=== PATIENT | female | born 2000 | race Caucasian/White ===

== ENCOUNTER 2020-11-16 18:35 | Emergency (ER) | payer OTHER, SELFPAY ==
[2020-11-16 18:45] VITALS: BP 122/86; PULSE 78; RESP 18; TEMP 36; O2SAT 100
--- NOTE | 2020-11-16 19:07 | ED.GENADULT ---
HPI - General Adult General Chief complaint: Unspecified Stated complaint: I may be in DKA Time Seen by Provider: 11/16/20 19:03 Source: RN notes reviewed History of Present Illness HPI narrative: Patient presents to emergency department from home for elevated blood sugars. Patient is a type I diabetic with an insulin pump states that her blood sugars been reading high today up into the 450s she states that her pump has been working she has been dosing correctly she denies any recent illness she she did 1 episode of nausea earlier today but denies any vomiting denies any fevers or chills chest pain shortness of breath abdominal pain or any other symptoms Related Data Home Medications Medication Instructions Recorded Confirmed insulin lispro [Humalog U-100 11/16/20 Insulin] Allergies Allergy/AdvReac Type Severity Reaction Status Date / Time No Known Allergies Allergy Verified 11/16/20 18:48 Review of Systems Review of Systems: Narrative: Gen.: Denies fevers or chills ENT: Denies congestion Respiratory: Denies shortness of breath or cough CV: Denies chest pain or palpitations GI: Denies abdominal pain nausea or diarrhea. Reports nausea denies burning, urgency, frequency or hematuria Musculoskeletal: Denies back pain or muscle pain Neuro: Denies numbness, tingling, weakness or focal weakness Skin: Denies rash Endocrine: See HPI Except as documented, all other systems reviewed and negative FOR[facility] Past Medical History Medical History (Updated 11/16/20 @ 21:21 by Quan Hyde DO) Diabetes mellitus Social History Social History (Updated 11/16/20 @ 19:08 by Quan Hyde DO) Smoking status: Never smoker Exam Narrative: Exam Narrative: APPEARANCE: No acute distress, nontoxic, resting in bed EYES: EOMI HEENT: Normocephalic, atraumatic, OMM RESPIRATORY: No respiratory distress Clear to auscultation bilaterally with no rhonchi wheezing or rales. CARDIOVASCULAR: Regular rate and rhythm without murmurs rubs or gallops. ABDOMINAL: Soft, nontender, nondistended, no rebound or guarding MUSCULOSKELETAl: Moves all extremities. No clubbing, cyanosis or edema. NEURO: Awake and alert. Following commands, speech normal, no focal deficits SKIN:: Warm, dry. 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 Discussed need for follow-up with primary care, proper use of medication, and reasons to return to the emergency department. Patient understands and agrees to current treatment plan Vital Signs Vital signs: Vital Signs Temperature 96.8 F L 11/16/20 18:45 Pulse Rate 78 11/16/20 18:45 Respiratory Rate 18 11/16/20 18:45 Blood Pressure 122/86 11/16/20 18:45 Pulse Oximetry 100 11/16/20 18:45 Temperature 96.8 F L 11/16/20 18:45 Pulse Rate 78 11/16/20 18:45 Respiratory Rate 18 11/16/20 18:45 Blood Pressure 122/86 11/16/20 18:45 Pulse Oximetry 100 11/16/20 18:45 Medical Decision Making Vital Signs Vital Signs: Vital Signs Temperature 96.8 F L 11/16/20 18:45 Pulse Rate 78 11/16/20 18:45 Respiratory Rate 18 11/16/20 18:45 Blood Pressure 122/86 11/16/20 18:45 Pulse Oximetry 100 11/16/20 18:45 Temperature 96.8 F L 11/16/20 18:45 Pulse Rate 78 11/16/20 18:45 Respiratory Rate 18 11/16/20 18:45 Blood Pressure 122/86 11/16/20 18:45 Pulse Oximetry 100 11/16/20 18:45 Lab Data Result diagrams: 11/16/20 19:12 11/16/20 19:12 Labs: Lab Results 11/16/20 11/16/20 11/16/20 Range/Units 19:12 19:12 19:12 WBC 7.6 (4.5-10.0) K/mm3 RBC 4.51 (4.2-5.4) M/mm3 Hgb 14.1 (
[2020-11-16 19:26] LABS: Basophils Percent Auto 0.4 % (0.2-1.2); Eosinophils Absolute Auto 0.1 K/mm3 (0-0.3); Eosinophils Percent Auto 0.9 % (0-4.4); Hematocrit 40.2 % (37.0-47.0); Hemoglobin 14.1 g/dL (12.0-15.0); Immature Granulocyte Absolute 0.02 K/mm3 (0.00-0.031); Immature Granulocyte Percent A 0.3 % (0-0.5); Lymphocytes Absolute Auto 2.44 K/mm3 (0.9-3.2); Mean Corpuscular HGB Conc 35.1 g/dl (32-36); Mean Corpuscular Hemoglobin 31.3 pg (26-34); Mean Corpuscular Volume 89.1 fl (80-100); Mean Platelet Volume 9.4 fl (7.4-10.4); Monocytes Absolute Auto 0.5 K/mm3 (0.1-0.6); Neutrophils Absolute Auto 4.6 K/mm3 (1.3-6.7); Neutrophils Percent Auto 60.4 % (45.5-73.1); Platelet Count Result 262 k/mm3 (150-375); Red Blood Count 4.51 M/mm3 (4.2-5.4); Red Cell Distribution Width 11.2 % (11.5-14.5); White Blood Count 7.6 K/mm3 (4.5-10.0)
[2020-11-16] MEDS: SODIUM CHLORIDE 0.9% IV 1,000 ML 999 ML IV CONT ×2 (19:26→20:17)
[2020-11-16 19:35] LABS: Alanine Aminotransferase 14 U/L (4-35); Albumin Level 4.3 g/dL (3.5-5.1); Alkaline Phosphatase 79 U/L (38-126); Anion Gap 9 mmol/L (8-16); Aspartate Amino Transferase 23 U/L (14-36); Bilirubin,Total 0.7 mg/dL (0.2-1.3); Blood Urea Nitrogen 15 mg/dL (7-17); Calcium 9.4 mg/dL (8.4-10.2); Carbon Dioxide 27 mmol/L (22-30); Chloride 100 mmol/L (98-107); Estimated CRCL calculation 90 ml/min; Estimated Glomerular Filt Rate > 60; Glucose 279 mg/dL (65-105); Sodium 136 mmol/L (137-145)
[2020-11-16 19:37] LABS: Beta-Hydroxybutyrate/Acetoacetate 0.56 mmol/L (0.02-0.27)
[2020-11-16 19:41] LABS: Add Urine Microscopic? YES; Appearance Urine Clear (Clear); Bacteria Urine Trace /hpf; Bilirubin Urine Negative (Negative); Blood Urine Negative (Negative); Color Urine Yellow (Yellow); Glucose Urine UA 3+ mg/dL (Negative); Ketones Urine 2+ mg/dL (Negative); Leukocyte Esterase Ur Negative LEU/UL (Negative); Nitrate Urine Negative (Negative); Protein Urine Negative (Negative); RBC Urine 0-2 /hpf (0-2); Specific Grav Ur 1.029 (1.001-1.035); Squamous Epithelial Cell Urine Occasional /hpf (Few); Urobilinogen Urine Negative mg/dL (<2.0); WBC Urine 0-3 /hpf
[2020-11-16 19:54] LABS: Potassium 3.8 mmol/L (3.4-5.0)
[2020-11-16 20:28] LABS: Alveolar/Arterial O2 Gradient 11.3 mmHg; Base Excess ABG -3.2 mEq/l (+/-2.0); Fractional Inspired Oxygen 21 %; Oxygen Content ABG 18.5 %vol (16.0-22.0); Oxygen Saturation ABG 97.9 % (95.0-100.0); Oxyhemoglobin 96.7 % THb (90.0-100.0); PCO2 ABG 30.8 mmHg (35.0-45.0); PO2 ABG 101.5 mmHg (80.0-100.0); PO2 FiO2 Ratio Arterial Blood 4.83 %; Total Hemoglobin 13.5 g/dL (12.0-18.0); pH ABG 7.431 (7.350-7.450)
[2020-11-16 20:29] LABS: Device ROOM AIR; Modified Allen's Test Pass; Site Drawn RIGHT RADIAL
[2020-11-16 21:15] LABS: Glucose Point of Care 260 (65-105)
[2020-11-16 21:15] LABS: Glucose Point of Care 182 (65-105)
[2020-11-16 21:21] VITALS: BP 132/78; PULSE 78; RESP 18; O2SAT 99
== END 2020-11-16 21:27 | disposition home or self-care (01) ==
PROVIDERS: Emergency Provider Emergency Medicine
DX: E10.65 Type 1 diabetes mellitus with hyperglycemia (principal); Z79.4 Long term (current) use of insulin; Z96.41 Presence of insulin pump (external) (internal)
CPT/HCPCS: 36415; 36600; 80053; 81001; 81025; 82010; 82805; 82948; 85025; 96360; 96361; 99283; J7030